=== PATIENT | female | born 1990 | race Caucasian/White ===

== ENCOUNTER → 2022-09-15 12:57 | Outpatient (BNVA) | payer OTHER, SELFPAY | PROVIDERS: Visit Provider Nurse Practitioner Family | DX: F43.10 Post-traumatic stress disorder, unspecified (principal); Z01.419 Encounter for gynecological examination (general) (routine) without abnormal findings | CPT/HCPCS: 80053; 80061; 82306; 82607; 84443; 85025; 88175 ==

== ENCOUNTER → 2023-08-22 08:32 | Outpatient (BNVA) | payer SELFPAY | PROVIDERS: PCP Nurse Practitioner Family; Visit Provider Nurse Practitioner Family | DX: M54.50 Low back pain, unspecified (principal); Z79.899 Other long term (current) drug therapy | CPT/HCPCS: 81003; 87077; 87086; 87184 ==

== ENCOUNTER → 2024-09-11 16:00 | Outpatient (BNVA) | payer SELFPAY | PROVIDERS: PCP Nurse Practitioner Family; Visit Provider Nurse Practitioner Family | DX: R39.9 Unspecified symptoms and signs involving the genitourinary system (principal); N39.0 Urinary tract infection, site not specified | CPT/HCPCS: 81000 ==